=== PATIENT | female | born 1985 | race African-American/Black ===

== ENCOUNTER 2017-04-10 23:38 | Emergency (ER) | payer SELFPAY ==
[~2017-04-10] VITALS: Ht 167.6 cm; Wt 68.0 kg
[2017-04-11] MEDS ORDERED: IBUPROFEN 800MG TABLET PO ONE (01:45)
[2017-04-11] MEDS ORDERED: CYCLOBENZAPRINE 10MG TABLET PO ONE (01:45)
[2017-04-11 02:30] VITALS: BP 120/70
== END 2017-04-11 02:45 | disposition home or self-care (01) ==
LOC: ER 23:58
DX: S60.221A Contusion of right hand, initial encounter (principal); S09.90XA Unspecified injury of head, initial encounter; M62.838 Other muscle spasm; V49.9XXA Car occupant (driver) (passenger) injured in unspecified traffic accident, initial encounter; Y93.89 Activity, other specified; Y92.89 Other specified places as the place of occurrence of the external cause; Y99.8 Other external cause status
CPT/HCPCS: 73130; 81025; 99284